=== PATIENT | male | born 2000 | race Two or more races ===

== ENCOUNTER 2021-04-14 09:30 | Outpatient (REF) | payer BC, SELFPAY ==
[2021-04-14 10:14] LABS: Hematocrit 42.7 % (42.0-52.0); Hemoglobin 14.4 g/dl (14.0-18.0); Mean Corpuscular HGB Conc 33.7 g/dl (31.0-36.0); Mean Corpuscular Hemoglobin 30.9 pg (27.0-33.0); Mean Corpuscular Volume 91.6 fL (80.0-98.0); Mean Platelet Volume 10.8 fL (9.4-12.4); Platelet Count 187 X10*3/uL (160-400); Red Blood Count 4.66 X10*6/uL (4.60-5.80); White Blood Count 6.8 X10*3/uL (4.8-10.8)
[2021-04-14 10:49] LABS: Alanine Aminotransferase 17 U/L (0-40); Albumin Level 4.6 g/dL (3.5-5.0); Alkaline Phosphatase 66 U/L (39-117); Anion Gap 9 (12-20); Aspartate Amino Transferase 15 U/L (5-37); Bilirubin Direct 0.2 mg/dL (0.0-0.5); Bilirubin Total 0.6 mg/dL (0.0-1.0); Blood Urea Nitrogen 15 mg/dL (9-16); Carbon Dioxide 31 mmol/L (22-29); Chloride 103 mmol/L (96-108); Cholesterol 178 mg/dL; Estimated Glomerular Filt Rate > 60; Glucose Random 99 mg/dL (60-115); HDL Cholesterol 32 mg/dL; LDL Cholesterol Calculated 132 mg/dl; Potassium 4.5 mmol/L (3.3-5.1); Sodium 138 mmol/L (135-145); Total Protein 7.7 g/dL (6.5-8.0); Triglycerides 73 mg/dL
[2021-04-14 11:02] LABS: Thyroid Stimulating Hormone 1.91 uIU/mL (0.32-4.0)
== END 2021-04-14 09:31 | disposition home or self-care (01) ==
LOC: HO.LAB 09:30
PROVIDERS: PCP Internal Medicine; Visit Provider Internal Medicine
DX: E78.00 Pure hypercholesterolemia, unspecified (principal)
CPT/HCPCS: 36415; 80048; 80061; 80076; 84443; 85027

== ENCOUNTER 2022-01-09 11:29 | Outpatient (REF) | payer BC, SELFPAY ==
[2022-01-09 11:56] LABS: Hematocrit 42.6 % (42.0-52.0); Hemoglobin 14.1 g/dl (14.0-18.0); Mean Corpuscular HGB Conc 33.1 g/dl (31.0-36.0); Mean Corpuscular Hemoglobin 30.7 pg (27.0-33.0); Mean Corpuscular Volume 92.8 fL (80.0-98.0); Mean Platelet Volume 10.7 fL (9.4-12.4); Platelet Count 170 X10*3/uL (160-400); Red Blood Count 4.59 X10*6/uL (4.60-5.80); Red Cell Distribution Width 11.9 % (11.0-16.0); White Blood Count 6.2 X10*3/uL (4.8-10.8)
[2022-01-09 11:59] LABS: Appearance Urine Clear; Color Urine Yellow; Glucose Urine UA Negative (Negative); Leukocyte Esterase Urine Negative (Negative); Nitrite Urine Negative (Negative); UMIC TRIGGER UA YES; Urine Blood Moderate (2+) (Negative); Urine Ketones Negative (Negative); Urine Protein Negative (Neg-Trace)
[2022-01-09 12:01] LABS: Bacteria Urine None Seen (None Seen); Hyaline Casts Urine 0-2 /LPF (0-2); Squamous Epithelial Cell Urine 0-2 /HPF (0-2); WBC Urine 0-5 /HPF (0-5)
[2022-01-09 12:24] LABS: Alanine Aminotransferase 25 U/L (0-40); Albumin Level 4.7 g/dL (3.5-5.0); Alkaline Phosphatase 85 U/L (39-117); Anion Gap 15 (12-20); Aspartate Amino Transferase 19 U/L (5-37); Bilirubin Direct 0.3 mg/dL (0.0-0.5); Bilirubin Total 0.8 mg/dL (0.0-1.0); Blood Urea Nitrogen 16 mg/dL (9-16); Calcium 9.8 mg/dL (8.4-10.2); Carbon Dioxide 26 mmol/L (22-29); Chloride 105 mmol/L (96-108); Cholesterol 161 mg/dL; Estimated Glomerular Filt Rate > 60; Glucose Random 99 mg/dL (60-115); HDL Cholesterol 39 mg/dL; LDL Cholesterol Calculated 110 mg/dl; Potassium 4.5 mmol/L (3.3-5.1); Sodium 141 mmol/L (135-145); Total Protein 7.5 g/dL (6.5-8.0); Triglycerides 60 mg/dL
[2022-01-09 12:48] LABS: Thyroid Stimulating Hormone 1.21 uIU/mL (0.32-4.0)
== END 2022-01-09 11:30 | disposition home or self-care (01) ==
LOC: HO.LAB 11:29
PROVIDERS: PCP Internal Medicine; Visit Provider Internal Medicine
DX: Z00.00 Encounter for general adult medical examination without abnormal findings (principal)
CPT/HCPCS: 36415; 80048; 80061; 80076; 81001; 81003; 84443; 85027

== ENCOUNTER 2022-09-20 10:37 | Outpatient (AMB) | payer BC, SELFPAY ==
--- NOTE | 2022-09-20 10:41 | MHC.PC.OV ---
Vital Signs 09/20/22 10:42 Height 6 ft 0.5 in Weight 208 lb 8 oz BMI 27.9 BP 100/60 Blood Pressure Location Lt brachial Position Sitting Pulse 71 Pulse Source Pulse Oximeter Pulse Oximetry (%) 96 Oxygen Delivery Method Room Air Intake Visit Reasons: Stomach Issue's Infirmary Attendant Required: No Accompanied by: Self / Same As Patient Allergies No Known Allergies Allergy (Verified 09/20/22 11:02) Medication List - Last Reconciled 09/20/22 by Aiden Gruber PA-C No Known Home Meds Tobacco use date assessed: 09/20/22 Dental Screening Dental Screen Date: 09/20/22 Did you have a dental visit in the last 12 months?: No Did you have a dental problem in the last 6 months where you did not have access to dental care?: No Was dental information given to patient?: No HPI Stomach Issue's HPI Details Patient is a 22-year-old male here today for problem visit. This is the 1st time I am meeting this 22-year-old male generally in good health. Reports having GERD like symtoms , Does takes prilosec which is help though takes a while to work. Also reports right foot pain mostly around his arch over last few months. 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 1. Little interest or pleasure in doing things: not at all 2. Feeling down, depressed, or hopeless: not at all 3. Trouble falling or staying asleep, or sleeping too much: not at all 4. Feeling tired or having little energy: not at all 5. Poor appetite or overeating: not at all 6. Feeling bad about yourself - or that you are a failure or have let yourself or your family down: not at all 7. Trouble concentrating on things, such as reading the newspaper or watching television: not at all 8. Moving or speaking so slowly that other people could have noticed. Or the opposite - being so fidgety or restless that you have been moving around a lot more than usual: not at all 9. Thoughts that you would be better off or of hurting yourself in some way: not at all Total score: 0 Depression Screening Interpretation: Negative 45409 - PHQ-9 Billing: Yes Source: Developed by Drs. Cory Beck, Erica Clayton, Patric Akins and colleagues, with an educational ashish from [employer]. Thrive Questionnaire Date Thrive assessed: 09/20/22 I am a: Patient What is your living situation today?: I have a steady place to live Within the past 12 months, did the food you bought not last and you didn't have the money to get more?: Never true Within the past 12 months, did you worry whether your food would run out before you got money to buy more?: Never true Do you have trouble paying for medicines?: No Do you have trouble getting transportation to medical appointments?: No Do you have trouble paying your heating and electricity bill?: No Do you have trouble taking care of your child, family member or friend?: No Do you have trouble with day-to-day activities such as bathing, preparing meals, shopping, managing finances, etc.?: No Are you currently unemployed and looking for a job?: No Are you interested in more education?: No Please select the resources that you would like help with: None Currently or been in a relationship where the following occur: no concerns reported AUDIT C Alcohol Use Questionnaire (AUDIT-C) 1. How often do you have a drink containing alcohol?: Never Total Score: 0 ABRAHAM-7 AMB Questionnaire ABRAHAM-7 Date ABRAHAM - 7 assessed: 09/20/22 Feeling nervous, anxious, or on edge: 0 = Not at all Not being able to stop or control worryin = Not at all Worrying too much about different things: 0 = Not at all Trouble relaxin = Not at all Being so restless that it is hard to sit still: 0 = Not at all Becoming easily annoyed or irritable: 0 = Not at all Feeling afraid as if something awful might happen: 0 = Not at all Total ABRAHAM-7 score (0-4 normal; 5-9 mild; 10-14 moderate; 15-21 severe): 0 Source: Developed by Drs. Cory Beck, Erica Clayton, Patric Akins and colleagues, with an educational ashish from [employer]. Review of Systems Const Denies headache(s) Eyes Denies loss of vision ENT Denies vertigo, Denies dizziness, Denies headache(s) and Denies sore throat Card Denies chest pain, Denies leg edema and Denies lightheadedness Resp Denies cough, Denies hemoptysis and Denies wheezing GI Reports abdominal pain, Denies melena, Reports constipation, Reports dyspepsia, Reports heartburn, Denies diarrhea, Reports nausea and Denies vomiting Denies dysuria, Denies urinary frequency and Denies urinary urgency Musc Denies arthralgias, Denies joint swelling, Denies numbness and Denies tingling Neuro Denies Abnormal speech present, Denies behavioral changes, Denies vertigo, Denies dizziness, Denies headache(s), Denies loss of vision, Denies memory loss, Denies numbness and Denies tingling Psych Denies anxiety, Denies behavioral changes, Denies depression, Denies memory loss and Denies panic attacks Adolfo/Lymph Denies easy bleeding and Denies easy bruising Aller/Immun Denies wheezing Physical exam (Primary Care) Vital Signs: Last Vital Signs Pulse 71 09/20/22 10:42 BP 100/60 09/20/22 10:42 Pulse Ox 96 09/20/22 10:42 Oxygen Delivery Method Room Air 09/20/22 10:42 BMI result Body Mass Index 27.9 Tobacco/Smoking Status: Tobacco use Status Tobacco use date assessed 09/20/22 09/20/22 10:47 Patient Tobacco Use Status Former Tobacco user 09/20/22 10:47 Tobacco use type Cigarette 09/20/22 10:47 e-Cigarette/Vaping Use Never Used 09/20/22 10:47 PHQ-9: PHQ-9 Score PHQ-9: Total score 0 09/20/22 10:47 Depression Screening Interpretation: Negative Thrive Assessment: Date of Thrive Assessment Date Thrive assessed 09/20/22 09/20/22 10:47 Currently or been in a relationship where the following occur: no concerns reported Const General: healthy appearing, no acute distress, alert and awake Nutritional Appearance: well nourished Orientation/consciousness: oriented to person, oriented to place and oriented to time HENMT Ears: TM's normal bilaterally General nose exam: Normal nasal mucous membranes and turbinates present Eyes Conjunctivae: conjunctivae normal Sclerae: sclerae normal Pupils: Equal, round and reactive pupils present Neck Neck: Yes no lymphadenopathy and Yes no JVD Thyroid: Thyroid normal Carotids: no bruits Resp Effort & Inspection: normal respiratory effort and not tachypneic Auscultation: no crackles, no rales, no rhonchi and no wheezes Cardio Rate: regular rate Rhythm: regular rhythm Heart sounds: no murmurs and normal S1 and S2 GI Palpation (GI): Soft to palpation, nontender, no hepatomegaly and no splenomegaly Auscultation: normal bowel sounds Skin General skin exam: no rashes or lesions noted and dry skin Neuro General: oriented to person, oriented to place and oriented to time Cranial nerves: Yes Equal, round and reactive pupils present Speech: No Abnormal speech present Gait exam (Neuro): Normal gait present Motor exam (neuro): no tremor noted Extrem Right upper extremity: full ROM Left upper extremity: full ROM Right lower extremity: full ROM; no edema Left lower extremity: full ROM; no edema Psych Mental Status: mental status grossly normal Speech and movement: Normal speech and movement present Affect: normal affect Attitude: cooperative Thought process: Normal thought process present Assessment and Plan Assessment & Plan (1) GERD (gastroesophageal reflux disease): Code(s): K21.9 - Gastro-esophageal reflux disease without esophagitis Qualifiers: Esophagitis presence: without esophagitis Qualified Code(s): K21.9 - Gastro-esophageal reflux disease without esophagitis Plan: Patient's signs and symptoms consistent with GERD. Advised on dietary modifications. Will send in pantoprazole 20 mg to take consistently over the next 2 weeks. (2) Right foot pain: Code(s): M79.671 - Pain in right foot Plan: Reports right arch foot pain. Will send for x-ray to evaluate bones. Likely tendon issue likely need to try [id number] shoe inserts. Orders: Orders Basic Metabolic Panel Today K21.9 - Gastro-esophageal reflux disease without esophagitis Lipase Today K21.9 - Gastro-esophageal reflux disease without esophagitis Complete Blood Count no Diff Today K21.9 - Gastro-esophageal reflux disease without esophagitis H pylori Ag Stool Today K21.9 - Gastro-esophageal reflux disease without esophagitis XR foot RT 2V Today M79.671 - Pain in right foot Medications: New pantoprazole 20 mg PO DAILY 30 days 30 tabs 1RF K21.9 - Gastro-esophageal reflux disease without esophagitis Coding Level of Care Code Est Pt Level 4 (92679) Diagnoses GERD (gastroesophageal reflux disease) K21.9 Esophagitis presence: without esophagitis Right foot pain M79.671
[2022-09-20 10:42] VITALS: BP 100/60; PULSE 71; O2SAT 96; BMI 27.9
== END 2022-09-20 11:19 | disposition home or self-care (01) ==
PROVIDERS: PCP Internal Medicine; Visit Provider Physician Assistant
DX: K21.9 Gastro-esophageal reflux disease without esophagitis (principal); M79.671 Pain in right foot
CPT/HCPCS: 99214

== ENCOUNTER 2022-09-20 11:21 | Outpatient (REF) | payer BC, SELFPAY ==
--- NOTE | ~2022-09-20 | XR_ITS ---
EXAMINATION: XR FOOT, RIGHT CLINICAL INFORMATION: Pain in right foot. COMPARISON: None available. TECHNIQUE: AP, lateral, and oblique views of the right foot. FINDINGS: Minimal degenerative changes with hypertrophic change in the 1st metatarsophalangeal joint. 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 No displaced fracture. XR/XR foot RT min 3V IMPRESSION: 1. Minimal degenerative changes with hypertrophic change 1st metatarsophalangeal joint. 2. 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 3. Recommend follow-up imaging in 10-14 days if fracture is suspected. 4. Additional imaging with CT scan or MRI should be considered for better visualization as these modalities are much more sensitive for detection of fracture or other underlying pathology.
[2022-09-20 12:07] LABS: Hematocrit 45.4 % (42.0-52.0); Hemoglobin 15.6 g/dl (14.0-18.0); Mean Corpuscular HGB Conc 34.4 g/dl (31.0-36.0); Mean Corpuscular Hemoglobin 31.6 pg (27.0-33.0); Mean Corpuscular Volume 91.9 fL (80.0-98.0); Mean Platelet Volume 10.5 fL (9.4-12.4); Platelet Count 177 X10*3/uL (160-400); Red Blood Count 4.94 X10*6/uL (4.60-5.80); Red Cell Distribution Width 11.6 % (11.0-16.0); White Blood Count 7.9 X10*3/uL (4.8-10.8)
[2022-09-21 02:01] LABS: Anion Gap 10 (12-20); Blood Urea Nitrogen 13 mg/dL (9-16); Calcium 9.8 mg/dL (8.4-10.2); Carbon Dioxide 29 mmol/L (22-29); Chloride 101 mmol/L (96-108); Estimated Glomerular Filt Rate > 60; Glucose Random 83 mg/dL (60-115); Lipase 31 U/L (8-78); Potassium 3.9 mmol/L (3.3-5.1); Sodium 136 mmol/L (135-145)
== END 2022-09-20 11:22 | disposition home or self-care (01) ==
LOC: HO.XRAY 11:21
PROVIDERS: PCP Internal Medicine; Visit Provider Physician Assistant
DX: K21.9 Gastro-esophageal reflux disease without esophagitis (principal); M79.671 Pain in right foot
CPT/HCPCS: 36415; 73630; 80048; 83690; 85027

== ENCOUNTER 2022-09-21 14:36 | Outpatient (REF) | payer BC, SELFPAY | END 2022-09-21 14:37 | disposition home or self-care (01) | LOC: HO.LNP 14:36 | PROVIDERS: Visit Provider Physician Assistant | DX: K21.9 Gastro-esophageal reflux disease without esophagitis (principal) | CPT/HCPCS: 87338 ==

== ENCOUNTER 2023-04-12 09:31 | Outpatient (AMB) | payer BC, SELFPAY ==
--- NOTE | 2023-04-12 09:35 | A.OFFPC_ITS ---
Vital Signs 04/12/23 09:36 Height 6 ft 0.5 in Weight 211 lb 8 oz BMI 28.3 BP 120/66 Blood Pressure Location Lt brachial Position Sitting Pulse 65 Pulse Source Pulse Oximeter Pulse Oximetry (%) 99 Oxygen Delivery Method Room Air Intake Visit Reasons: Annual Exam Intake Note: Patient is here today for a physical. Special Delivery Mail Carrier Required: No Template Reproduction Technician: Not Required per policy Accompanied by: Self / Same As Patient Allergies No Known Allergies Allergy (Verified 04/13/23 08:11) Medication List - Last Reconciled 04/13/23 by Jonathan Smart MD No Known Home Meds Tobacco use date assessed: 04/12/23 Dental Screening Dental Screen Date: 04/12/23 Did you have a dental visit in the last 12 months?: No Did you have a dental problem in the last 6 months where you did not have access to dental care?: No Was dental information given to patient?: No HPI Annual Exam HPI Details 22-year-old male presents to the office requesting an annual physical. Patient has ongoing right foot pain. A podiatry consult was requested last year. Patient did not go for the appointment. He would like another appointment. Patient is also complaining of perineally blocked nasal passages. Every morning he wakes up with a bad postnasal drip and coughing. He has tried Zyrtec and Flonase with minimal relief. [facility] Medical History (Updated 04/13/23 @ 08:24 by Jonathan Smart MD) H. pylori infection GERD (gastroesophageal reflux disease) Surgical History No pertinent past surgical history Family History Mother Diabetes Father Hypertension Kidney failure Social History Housing: Apartment Alcohol intake: never Patient Tobacco Use Status: Current someday Tobacco user Tobacco use type: Cigarette Cigarettes Per Day: 5 (5 cigarette a week) e-Cigarette/Vaping Use: Never Used Second Hand Smoke Exposure: Yes service: No Current occupational status: unemployed Cognitive needs: No Hearing needs: No Vision needs: No Questionnaire PHQ-9 Over the last 2 weeks, how often have you been bothered by any of the following problems? 1. Little interest or pleasure in doing things: not at all 2. Feeling down, depressed, or hopeless: not at all 3. Trouble falling or staying asleep, or sleeping too much: not at all 4. Feeling tired or having little energy: not at all 5. Poor appetite or overeating: not at all 6. Feeling bad about yourself - or that you are a failure or have let yourself or your family down: not at all 7. Trouble concentrating on things, such as reading the newspaper or watching television: not at all 8. Moving or speaking so slowly that other people could have noticed. Or the opposite - being so fidgety or restless that you have been moving around a lot more than usual: not at all 9. Thoughts that you would be better off or of hurting yourself in some way: not at all Total score: 0 Depression Screening Interpretation: Negative Depression Screening Done: Yes Source: Developed by Drs. Cory Beck, Erica Clayton, Patric Akins and colleagues, with an educational ashish from [employer]. Thrive Questionnaire Date Thrive assessed: 04/12/23 I am a: Patient What is your living situation today?: I have a steady place to live Within the past 12 months, did the food you bought not last and you didn't have the money to get more?: Never true Within the past 12 months, did you worry whether your food would run out before you got money to buy more?: Never true Do you have trouble paying for medicines?: No Do you have trouble getting transportation to medical appointments?: No Do you have trouble paying your heating and electricity bill?: No Do you have trouble taking care of your child, family member or friend?: No Do you have trouble with day-to-day activities such as bathing, preparing meals, shopping, managing finances, etc.?: No Are you currently unemployed and looking for a job?: No Are you interested in more education?: No Currently or been in a relationship where the following occur: no concerns reported THRIVE Score: 0 AUDIT C Alcohol Use Questionnaire (AUDIT-C) 1. How often do you have a drink containing alcohol?: Never Total Score: 0 ABRAHAM-7 AMB Questionnaire ABRAHAM-7 Date ABRAHAM - 7 assessed: 04/12/23 Feeling nervous, anxious, or on edge: 0 = Not at all Not being able to stop or control worryin = Not at all Worrying too much about different things: 0 = Not at all Trouble relaxin = Not at all Being so restless that it is hard to sit still: 0 = Not at all Becoming easily annoyed or irritable: 0 = Not at all Feeling afraid as if something awful might happen: 0 = Not at all Total ABRAHAM-7 score (0-4 normal; 5-9 mild; 10-14 moderate; 15-21 severe): 0 Source: Developed by Drs. Cory Beck, Erica Clayton, Patric Akins and colleagues, with an educational ashish from [employer]. Physical exam (Primary Care) Vital Signs: Last Vital Signs Pulse 65 04/12/23 09:36 BP 120/66 04/12/23 09:36 Pulse Ox 99 04/12/23 09:36 Oxygen Delivery Method Room Air 04/12/23 09:36 BMI result Body Mass Index 28.3 Tobacco/Smoking Status: Tobacco use Status Tobacco use date assessed 04/12/23 04/12/23 09:42 Patient Tobacco Use Status Current someday Tobacco 04/12/23 09:42 Tobacco use type Cigarette 04/12/23 09:42 e-Cigarette/Vaping Use Never Used 04/12/23 09:42 PHQ-9: PHQ-9 Score PHQ-9: Total score 0 04/12/23 09:42 Depression Screening Interpretation: Negative Thrive Assessment: Date of Thrive Assessment Date Thrive assessed 04/12/23 04/12/23 09:42 Currently or been in a relationship where the following occur: no concerns reported Const General: cooperative and healthy appearing Nutritional Appearance: well nourished Orientation/consciousness: patient oriented x3 Limitations: no limitations HENMT Other: Nose: Deviated septum with polyp. Head: Yes normal to inspection Eyes General: appearance normal, both eyes and all related structures Neck Neck: Yes normal visual inspection Chest Chest palpation & inspection: normal palpation of entire chest wall Resp Effort & Inspection: normal respiratory effort Neuro General: patient oriented x3 Assessment and Plan Assessment & Plan (1) Annual physical exam: Code(s): Z00.00 - Encounter for general adult medical examination without abnormal findings Plan: A marine scientist and any and and an ENT consult will be placed. Coding Level of Care Code Est Pt Prev Care 18-39y(35252) Diagnoses Annual physical exam Z00.00
[2023-04-12 09:36] VITALS: BP 120/66; PULSE 65; O2SAT 99; BMI 28.3
== END 2023-04-12 10:10 | disposition home or self-care (01) ==
PROVIDERS: PCP Internal Medicine; Visit Provider Internal Medicine
DX: Z00.00 Encounter for general adult medical examination without abnormal findings (principal)
CPT/HCPCS: 99395

== ENCOUNTER → 2024-03-10 22:43 | Outpatient (BNV) | payer SELFPAY | PROVIDERS: Emergency Provider Internal Medicine; Visit Provider Internal Medicine Cardiovascular Disease | DX: R00.2 Palpitations (principal) | CPT/HCPCS: 93010 ==